=== PATIENT | female | born 1985 | race Two or more races ===

== ENCOUNTER 2024-06-22 11:18 | Outpatient (CLI) | payer OTHER | END 2024-06-22 11:25 | disposition home or self-care (01) | LOC: SONOGRAMA 11:18 | PROVIDERS: ATTEND Pathology Anatomic Pathology & Clinical Pathology | DX: D34 Benign neoplasm of thyroid gland (principal); E07.89 Other specified disorders of thyroid; E04.1 Nontoxic single thyroid nodule ==